=== PATIENT | female | born 1955 | race Hispanic/Latino ===

== ENCOUNTER 2020-11-20 02:26 | Inpatient (IN) | payer OTHER ==
[2020-11-20] MEDS ORDERED: DEXTROSE 50% IN WATER (25GM) 50 ML SYRINGE IV ONE ×2 (02:34→02:52)
--- NOTE | 2020-11-20 02:44 | Emergency Department Report ---
ED CPR HPI - General Stated Complaint: CARDIAC ARREST Time Seen by Provider: 11/20/20 02:35 Source: family, EMS - History of Present Illness Initial Comments: Patient is 65 years old female with history of diabetes, noncompliant according to patient daughter report. Patient brought to the emergency room via EMS from a local hotel for evaluation after a cardiac arrest. EMS stated that patient told her daughter that she is feeling tired and lethargic and patient went into cardiac arrest. Initial rhythm was asystole. Patient intubated by EMS. Patient received 1 mg of epinephrine. Blood glucose was found to be 49 patient given dextrose 50. Upon arrival to the ER patient is intubated with good breath sound on both side with a strong pulse. Repeated blood glucose is 17. Patient given 2 amp of dextrose 50 and started on D10 at 150 mL/h. Complaint: found unresponsive -: minute(s) Place: other ([facility]) Bystander CPR Performed: No Initial Findings in the Field: unresponsive, lethargic, no pulse, systole ROSC in the Field: Yes Associated Injuries: No Treatments Prior to Arrival: intubation, epinephrine mgs # - Related Data Allergies Allergy/AdvReac Type Severity Reaction Status Date / Time sulfamethoxazole AdvReac Unknown Verified 11/20/20 02:41 [From Bactrim] trimethoprim [From Bactrim] AdvReac Unknown Verified 11/20/20 02:41 ED Review of Systems ROS: Stated complaint: CARDIAC ARREST Other details as noted in HPI Comment: Unobtainable due to pts medical conditions ED Physical Exam - General General appearance: other (Intubated) - Head Head exam: Present: atraumatic, normocephalic - Eye Pupils: Present: other (3 mm, nonreactive.) - ENT ENT exam: Present: mucous membranes dry - Neck Neck exam: Present: normal inspection - Respiratory Respiratory exam: Present: normal lung sounds bilaterally, other (No spontaneous breathing.) - Cardiovascular Cardiovascular Exam: Present: tachycardia, irregular rhythm, normal heart sounds - GI/Abdominal GI/Abdominal exam: Present: soft, other (Ecchymosis on the lower abdomen.). Absent: distended - Neurological Exam Neurological exam: Present: other (Intubated) - Skin Skin exam: Present: warm, dry, ecchymosis ED Course Vital Signs 11/20/20 11/20/20 11/20/20 02:36 02:46 03:00 Temperature Pulse Rate 106 H 89 Respiratory 20 19 Rate Blood Pressure 88/41 76/40 Blood Pressure [Left] O2 Sat by Pulse 100 Oximetry 11/20/20 11/20/20 11/20/20 03:16 03:30 03:45 Temperature Pulse Rate 94 H 82 93 H Respiratory 18 24 23 Rate Blood Pressure 67/34 78/39 76/35 Blood Pressure [Left] O2 Sat by Pulse Oximetry 11/20/20 11/20/20 11/20/20 04:01 04:15 04:31 Temperature Pulse Rate 90 87 85 Respiratory 21 21 21 Rate Blood Pressure 71/41 73/42 72/34 Blood Pressure [Left] O2 Sat by Pulse Oximetry 11/20/20 11/20/20 11/20/20 04:45 05:01 05:15 Temperature Pulse Rate 79 76 73 Respiratory 18 23 24 Rate Blood Pressure 62/25 67/23 69/25 Blood Pressure [Left] O2 Sat by Pulse Oximetry 11/20/20 11/20/20 11/20/20 06:01 06:15 06:21 Temperature 90.6 F L Pulse Rate 87 87 Respiratory 16 17 Rate Blood Pressure 71/34 86/41 Blood Pressure [Left] O2 Sat by Pulse Oximetry 11/20/20 11/20/20 11/20/20 06:31 07:00 07:30 Temperature Pulse Rate 98 H 113 H 115 H Respiratory 24 19 17 Rate Blood Pressure 87/32 Blood Pressure 95/44 106/53 [Left] O2 Sat by Pulse Oximetry 11/20/20 11/20/20 11/20/20 08:00 08:01 08:30 Temperature 91.6 F L Pulse Rate 117 H 117 H 103 H Respiratory 18 18 22 Rate Blood Pressure 90/40 87/39 Blood Pressure 90/40 [Left] O2 Sat by Pulse Oximetry 11/20/20 11/20/20 11/20/20 08:35 09:01 09:12 Temperature 93.2 F L Pulse Rate 115 H 127 H 124 H Respiratory 25 H 25 H Rate Blood Pressure 91/52 91/52 86/34 Blood Pressure [Left] O2 Sat by Pulse Oximetry 11/20/20 11/20/20 11/20/20 09:31 10:01 10:15 Temperature 93.6 F L Pulse Rate 120 H 112 H 126 H Respiratory 26 H 24 25 H Rate Blood Pressure 86/52 88/66 Blood Pressure [Left] O2 Sat by Pulse Oximetry 11/20/20 11/20/20 11/20/20 10:26 10:31 10:33 Temperature Pulse Rate 130 H 139 H 124 H Respiratory 19 26 H 20 Rate Blood Pressure 141/33 Blood Pressure 108/54 141/33 [Left] O2 Sat by Pulse 96 96 96 Oximetry 11/20/20 11/20/20 11/20/20 11:00 11:04 11:20 Temperature 93.6 F L Pulse Rate 127 H 82 132 H Respiratory 25 H 25 H Rate Blood Pressure 114/52 106/45 116/93 Blood Pressure [Left] O2 Sat by Pulse Oximetry 11/20/20 11/20/20 11/20/20 11:31 11:34 12:01 Temperature 94.4 F L Pulse Rate 88 87 96 H Respiratory 29 H 30 H 28 H Rate Blood Pressure 91/49 91/49 97/49 Blood Pressure [Left] O2 Sat by Pulse Oximetry 11/20/20 11/20/20 11/20/20 12:31 12:52 13:01 Temperature 96.3 F L Pulse Rate 94 H 94 H 95 H Respiratory 28 H 27 H 29 H Rate Blood Pressure 186/112 153/108 154/114 Blood Pressure [Left] O2 Sat by Pulse 63 L Oximetry 11/20/20 13:31 Temperature Pulse Rate 100 H Respiratory 30 H Rate Blood Pressure 188/101 Blood Pressure [Left] O2 Sat by Pulse Oximetry - Central Line Placement Right Femoral Consent Obtained: emergent situation Time Out Performed: Yes Patient Placed on Monitor/Pulse Ox: Yes Prep: mask, gown, gloves Central Line Prep: Povidone-Iodine 1%, Chlorhexidine scrub, sterile drapes applied Local Anesthesia Used: Lidocaine 1% Ultrasound Used for Placement: Yes Central Line Lumen Inserted: triple Reason for Insertion: Volume Resuscitation Bloods Obtained for Lab: No Central Line Position: good blood return, all ports aspirated, flus, sutured in place with 2-0 Dressing Applied: Tegaderm, sterile gauze/tape Patient Tolerated Procedure: well, no complications Complications: none ED Medical Decision Making - Lab Data Result diagrams: 11/20/20 03:24 11/20/20 03:24 - EKG Data -: EKG Interpreted by Me Rate: tachycardia - Radiology Data Radiology results: report reviewed - Medical Decision Making Patient is 65 years old female with history of diabetes, noncompliant according to patient daughter report. Patient brought to the emergency room via EMS from a local hotel for evaluation after a cardiac arrest. EMS stated that patient told her daughter that she is feeling tired and lethargic and patient went into cardiac arrest. Initial rhythm was asystole. Patient intubated by EMS. Patient received 1 mg of epinephrine. Blood glucose was found to be 49 patient given dextrose 50. Upon arrival to the ER patient is intubated with good breath sound on both side with a strong pulse. Repeated blood glucose is 17. Patient given 2 amp of dextrose 50 and started on D10 at 150 mL/h. Patient found to be hypothermic, bear hugger started. Patient is in septic shock. Patient started on normal saline, Zosyn and vancomycin. Chest x-ray showed bilateral lower lobe infiltrate. Right femoral central line placed for resuscitation and pressor. Patient found to be in acute anemia with a hemoglobin of 5.5. PRBC [address] brain and CT abdomen and pelvis is pending. Results need to be followed by hospitalist. I discussed the patient with Dr. Macdonald, he agreed to admit the patient to medical service for further management. Critical Care Time: Yes Critical care time in (mins) excluding proc time.: 45 Critical care attestation.: If time is entered above; I have spent that time in minutes in the direct care of this critically ill patient, excluding procedure time. ED Disposition Clinical Impression: Cardiopulmonary arrest, Septic shock, Bilateral pneumonia, Acute anemia, Hypothermia, Acute renal failure Disposition: 09 OP ADMIT IP TO THIS HOSP Is pt being admited?: Yes Condition: Stable Instructions: Bacterial Pneumonia (ED) Referrals: PRIMARY CARE, [Primary Care Provider] - 3-5 Days
[2020-11-20] MEDS ORDERED: SODIUM CHLORIDE 0.9% 1000 ML 1,000 ML IV ONE ×3 (02:45→09:50)
--- NOTE | 2020-11-20 02:59 | XRay Report ---
CHEST 1 VIEW 11/20/2020 2:30 AM INDICATION / CLINICAL INFORMATION: Chest Pain. COMPARISON: None available. FINDINGS: SUPPORT DEVICES: An ET tube terminates over the right main bronchus. HEART / MEDIASTINUM: No significant abnormality. LUNGS / PLEURA: There are generalized bilateral airspace opacities. No significant pleural effusion. No pneumothorax. ADDITIONAL FINDINGS: No significant additional findings. IMPRESSION: 1. Malpositioned ET tube as above. 2. Nonspecific bilateral airspace opacities. Considerations include pulmonary edema and pneumonia. Signer Name: Luis Angel Espino MD Signed: 11/20/2020 2:55 AM Workstation Name: [id number]
[2020-11-20] MEDS ORDERED: DEXTROSE 10% IN WATER 1,000 ML IV SCH (03:00)
[2020-11-20] MEDS ORDERED: PIPERACILLIN/TAZOBACTAM 3.375 3.375 GM/50 ML BAG IV ONE (03:27)
[2020-11-20 03:52] LABS: Mean Corpuscular HGB Conc 28 % (30-34); Mean Corpuscular Volume 93 fl (79-97); Platelet Count 136 K/mm3 (140-440); Red Blood Count 2.11 M/mm3 (3.65-5.03)
--- NOTE | 2020-11-20 03:52 | History and Physical Report ---
History of Present Illness Date of examination: 11/20/20 Date of admission: 11/20/2020 Chief complaint: Cardiac Arrest. History of present illness: 65-year-old female with known history of diabetes mellitus but noncompliant with medications according to daughter brought into the emergency room via EMS today for evaluation of cardiac arrest. Most of the history was gotten from the ER staff as patient is already intubated. EMS was said to have been informed by daughter that patient was feeling tired and lethargic and subsequently went into cardiac arrest. Initial rhythm was said to be asystole and patient subsequently intubated by EMS. She received 1 round of epinephrine. Initial blood sugar was about 49 and was given D50. Blood sugar check upon arrival in the emergency room was 17 and patient given 2 AMPS of D50 and then started on D10 IV infusion. Work-up in the emergency room today reveals: Hemoglobin of 5.5 and hematocrit of 19.6. D-dimer was greater than 10,000, LDH and ferritin levels were elevated. Urinalysis reveals a UTI. Chest x-ray reveals nonspecific bilateral airspace opacities considerations include pulmonary edema or pneumonia. BUN and creatinine were [address] head, Abdomen and pelvis still pending during this dictation. Patient is being admitted into the intensive care unit with multiple medical problems including septic shock, UTI, anemia, acute kidney injury, and pneumonia. Past History Past Medical History: diabetes Past Surgical History: Other (Unknown) Social history: other (Unknown) Family history: other (Unknown) Medications and Allergies Allergies Allergy/AdvReac Type Severity Reaction Status Date / Time sulfamethoxazole AdvReac Unknown Verified 11/20/20 02:41 [From Bactrim] trimethoprim [From Bactrim] AdvReac Unknown Verified 11/20/20 02:41 Active Meds: Active Medications Dextrose (D10w) 1,000 mls @ 150 mls/hr IV DIRECT SHAQ Last Admin: 11/20/20 03:15 Dose: 150 mls/hr Documented by: Sodium Chloride (Nacl 0.9% 1000 Ml) 1,000 mls @ 999 mls/hr IV BOLUS ONE Stop: 11/20/20 03:45 Last Admin: 11/20/20 02:50 Dose: 999 mls/hr Documented by: Piperacillin Sod/Tazobactam Sod (Zosyn/Ns 3.375gm/50ml) 3.375 gm in 50 mls @ 100 mls/hr IV ONCE ONE; Protocol Stop: 11/20/20 03:56 Review of Systems ROS unobtainable: due to endotracheal tube Exam - Constitutional General appearance: Present: no acute distress, well-nourished, disheveled - EENT Eyes: Present: PERRL, EOM intact. Absent: scleral icterus ENT: hearing intact, clear oral mucosa, dentition normal - Neck Neck: Present: supple, normal ROM - Respiratory Respiratory effort: normal Respiratory: bilateral: CTA - Cardiovascular Rhythm: regular Heart Sounds: Present: S1 & S2. Absent: gallop, systolic murmur, diastolic murmur, rub, click - Extremities Extremities: no ischemia, pulses intact, pulses symmetrical, No edema, normal temperature, normal color, Full ROM Peripheral Pulses: within normal limits - Abdominal General gastrointestinal: Present: soft, non-tender, non-distended, normal bowel sounds. Absent: mass - Integumentary Integumentary: Present: clear, warm, dry, pale. Absent: rash - Musculoskeletal Musculoskeletal: strength equal bilaterally - Psychiatric Psychiatric: cooperative, other - Neurologic Neurologic: CNII-XII intact, no focal deficits, moves all extremities, other (Intubated.) Results - Labs CBC & Chem 7: 11/20/20 03:24 11/20/20 03:24 Labs: Abnormal lab results 11/20/20 11/20/20 11/20/20 Range/Units 02:34 02:51 03:06 POC Glucose 17 L < 10 L 212 H (70-105) mg/dL Assessment and Plan - Patient Problems (1) Cardiopulmonary arrest Current Visit: Yes Status: Acute Plan to address problem: Possibly multifactorial including sepsis from pneumonia and UTI, hypoglycemia and anemia. Patient admitted into the intensive care unit. We will consult security operations center operator and [place] i inspector for evaluation. (2) Bilateral pneumonia Current Visit: Yes Status: Acute Plan to address problem: Patient placed on empiric IV antibiotics. We will also rule out for COVID-19. Consult placed to infectious disease for evaluation and recommendation. (3) Septic shock Current Visit: Yes Status: Acute Plan to address problem: Possibly secondary to underlying pneumonia and UTI. Patient placed on IV fluid, empiric IV antibiotics and Levophed. Vitals will be closely monitored. (4) Acute anemia Current Visit: Yes Status: Acute Plan to address problem: No obvious blood loss. Baseline hemoglobin unknown Patient is being prepared for packed red blood cell transfusion. We will monitor CBC. (5) Acute renal failure Current Visit: Yes Status: Acute Plan to address problem: Patient commenced on IV fluid. Consult placed to nephrology for evaluation. (6) Hypothermia Current Visit: Yes Status: Acute Plan to address problem: Possibly secondary to the septic shock, severe hypoglycemia. Patient placed on a Shayla hugger. We will monitor vitals closely. (7) DVT prophylaxis Current Visit: Yes Status: Acute Plan to address problem: Patient placed on sequential compression device. (8) Full code status Current Visit: Yes Status: Acute Plan to address problem: Patient is a full code.
[2020-11-20 04:01] LABS: INR 2.71 (0.87-1.13)
[2020-11-20 04:03] LABS: Amorphous Crystals,Urine Few; Bacteria,Urine 4+ /HPF (Negative); Bilirubin,Urine NEG (Negative); Blood,Urine SM (Negative); Color,Urine Yellow (Yellow); Mucus,Urine 3+ /HPF; Urobilinogen,Urine < 2.0 mg/dL (<2.0)
[2020-11-20 04:06] LABS: Protein,Urine >500 mg/dL (Negative); WBC,Urine > 182.0 /HPF (0.0-6.0)
[2020-11-20 04:09] LABS: Hematocrit 19.6 % (30.3-42.9); Hemoglobin 5.5 gm/dl (10.1-14.3); Partial Thromboplastin Time 63.3 Sec. (24.2-36.6); Red Cell Distribution Width 25.4 % (13.2-15.2)
[2020-11-20 04:11] LABS: C-Reactive Protein 20.5 mg/dL (0.00-1.30)
[2020-11-20] MEDS ORDERED: SODIUM CHLORIDE 0.9% 500 ML 500 ML IV ONE ×2 (04:11→08:19)
[2020-11-20 04:12] LABS: Bilirubin,Direct 0.9 mg/dL (0-0.2)
[2020-11-20] MEDS ORDERED: DEXTROSE 50% IN WATER (25GM) 50 ML VIAL IV PRN (04:15)
[2020-11-20] MEDS ORDERED: SODIUM BICARB 8.4% 50 MEQ/50 ML SYRINGE IV ONE ×6 (04:16→22:30)
[2020-11-20 04:30] LABS: Albumin 1.3 g/dL (3.9-5)
[2020-11-20] MEDS ORDERED: VANCOMYCIN/NS 1 GM/250 ML 1 GM/250 ML BAG IV ONE (04:42)
[2020-11-20] MEDS ORDERED: NORepinephrine/NS 4 MG-250 ML 4 MG/250 ML BAG IV ONE (04:53)
[2020-11-20] MEDS ORDERED: NORepinephrine/NS 4 MG-250 ML 4 MG/250 ML BAG IV SCH (05:00)
[2020-11-20] MEDS ORDERED: ONDANSETRON 4 MG/2 ML INJ IV PRN (05:36)
[2020-11-20] MEDS ORDERED: DEXTROSE 50% IN WATER (25GM) 50 ML SYRINGE IV PRN (05:36)
[2020-11-20] MEDS ORDERED: SODIUM CHLORIDE 0.9% 1000 ML 1,000 ML IV SCH (05:45)
[2020-11-20 05:47] LABS: Band Neutrophils # (Manual) 1.3 K/mm3; Total Cells Counted 200
[2020-11-20 05:48] LABS: Anisocytosis 1+; Hypochromasia 1+; Macrocytosis 1+; Platelet Estimate Consistent w Auto
[2020-11-20] MEDS ORDERED: DOPamine/D5W 800 MG/250 ML 800 MG/250 ML BAG IV SCH (06:00)
[2020-11-20] MEDS ORDERED: VANCOMYCIN PHARMACY TO DOSE IV SCH (06:00)
--- NOTE | 2020-11-20 06:09 | Cat Scan Report ---
CT HEAD WITHOUT CONTRAST INDICATION : AMS. TECHNIQUE: Axial, coronal and sagittal CT imaging was performed from the skull apex through the skul l base without contrast. All CT scans at this location are performed using CT dose reduction for ALA RA by means of automated exposure control. COMPARISON: None available. FINDINGS: Motion artifact limits portions of this exam. PARENCHYMA: No mass, midline shift, hemorrhage, extraaxial collection or acute territorial infarctio n. VENTRICLES: Symmetric and normal in size. SOFT TISSUES: No significant abnormality of the included soft tissues/orbits. BONES: No acute osseous abnormality. SINUSES: Mild mucosal thickening is seen throughout the ethmoid air cells. No other significant abnor mality. ADDITIONAL FINDINGS: None. IMPRESSION: 1. No acute intracranial abnormality. 2. Mild ethmoid sinusitis. Signer Name: Luis Angel Espino MD Signed: 11/20/2020 6:05 AM Workstation Name: [id number]
--- NOTE | 2020-11-20 06:15 | Cat Scan Report ---
CT ABDOMEN AND PELVIS WITHOUT CONTRAST INDICATION / CLINICAL INFORMATION: Unspecified abdominal pain. TECHNIQUE: Axial CT images were obtained through the abdomen and pelvis without IV contrast. All CT scans at [facility] location are performed using CT dose reduction for ALARA by means of automated exposure control. COMPARISON: None available. FINDINGS: Motion/beam hardening artifacts limit this exam. LOWER CHEST: Extensive nodular opacities/consolidations are seen throughout the lung bases without ot her acute abnormalities. There is moderate thoracic aortic atherosclerosis and severe calcification o f the mitral valve. LIVER: No significant abnormality. GALLBLADDER: The gallbladder is mildly distended with stones/sludge seen dependently. No wall thicken ing or other evidence of acute cholecystitis. BILE DUCTS: No significant abnormality. PANCREAS: No significant abnormality. SPLEEN: No significant abnormality. ADRENALS: No significant abnormality. RIGHT KIDNEY / URETER: No significant abnormality. LEFT KIDNEY / URETER: No significant abnormality. STOMACH / SMALL BOWEL: No significant abnormality. COLON: Stool is seen throughout the colon without other acute abnormalities. APPENDIX: Not visualized. PERITONEUM: No free fluid. No free air. No fluid collection. LYMPH NODES: No significant adenopathy. AORTA / ARTERIES: There is mild generalized atherosclerosis. The aorta is normal in caliber. IVC / VEINS: No significant abnormality. An infrarenal IVC filter is present. URINARY BLADDER: Drained by a Huerta catheter. REPRODUCTIVE ORGANS: No significant abnormality. ADDITIONAL FINDINGS: Anasarca is noted with a gas containing fluid collection seen along the midline of the lower abdominal wall on image 133 of series 2 measuring 9.7 x 3.5 cm, likely representing an a bscess. Gas extends beyond the confines of this collection along the right lateral aspect of the [place] ection. Additional foci of gas are seen along the right groin. SKELETAL SYSTEM: The bones are demineralized with moderate degenerative changes seen throughout the s pine and pelvis. IMPRESSION: 1. Suspected bibasilar pneumonia. 2. Anasarca with a suspected abdominal wall abscess as above with additional nonspecific gas seen erika ng the right groin. 3. Additional findings as above. Signer Name: Luis Angel Espino MD Signed: 11/20/2020 6:10 AM Workstation Name: [id number]
[2020-11-20 06:44] LABS: Chol/HDL Ratio 7.8 %
[2020-11-20] MEDS ORDERED: VASOPRESSIN 20 UNIT in SODIUM CHLORIDE 0.9% 100 ML IV SCH (09:00)
[2020-11-20] MEDS ORDERED: INSULIN REGULAR, HUMAN 100 UNITS in SODIUM CHLORIDE 0.9% 99 ML IV SCH (09:00)
[2020-11-20] MEDS ORDERED: PANTOPRAZOLE 40 MG INJ IV SCH (10:00)
[2020-11-20] MEDS ORDERED: CEFEPIME/NS 2 GM/100 ML 2 GM/100 ML BAG IV SCH (10:00)
[2020-11-20] MEDS ORDERED: SODIUM BICARBONATE 150 MEQ in WATER, STERILE *NICU ONLY 1,000 SYR IV SCH (11:00)
[2020-11-20] MEDS ORDERED: LIDOCAINE (1%) 10 MG/1 ML VIAL 20 ML MDV INFILTRATI ONE (11:57)
--- NOTE | 2020-11-20 12:47 | Consultation ---
History of Present Illness - Reason for Consult Consult date: 11/20/20 pneumonia, r/o COVID Requesting physician: EMIR GIORDANO - History of Present Illness 65-year-old female with history of diabetes mellitus, noncompliant brought to the emergency room by EMS on 11/20/2020 secondary to cardiac arrest. Per records, patient was feeling tired and lethargic went into cardiac arrest upon EMS evaluation. Initial rhythm was asystole, patient was intubated, received epinephrine. Blood glucose was 49. History is limited. Patient intubated. On arrival, temperature 98.6, HR 106, RR 20, BP 88/41, O2 sat 100%. Initial WBC 20.5. Hemoglobin 5.5. Platelets 136. D-dimer> 10,000. Glucose 677. Urinalysis with 182 WBCs and moderate leukocyte esterase. Chest x-ray showed bilateral airspace disease. CT chest bibasilar pneumonia, sciatica, abdominal wall abscess 9.7 x 3.5 cm with gas, foci of gas in the right groin. Review of Systems: Unable to obtain Past History Past Medical History: diabetes Past Surgical History: Other (Unknown) Social history: other (Unknown) Family history: other (Unknown) Medications and Allergies Allergies Allergy/AdvReac Type Severity Reaction Status Date / Time sulfamethoxazole AdvReac Unknown Verified 11/20/20 02:41 [From Bactrim] trimethoprim [From Bactrim] AdvReac Unknown Verified 11/20/20 02:41 Active Meds: Active Medications Dextrose (Dextrose 50% In Water (25gm) 50 Ml Syringe) 0 ml IV Q30MIN PRN; Prot ocol PRN Reason: Hypoglycemia Norepinephrine (Levophed Drip 4 Mg/Ns 250 Ml) 4 mg in 250 mls @ 7.5 mls/hr IV TITR SHAQ; Protocol Last Titration: 11/20/20 10:17 Dose: 30 mcg/min, 112.5 mls/hr Documented by: Sodium Chloride (Nacl 0.9% 1000 Ml) 1,000 mls @ 125 mls/hr IV DIRECT SHAQ Last Admin: 11/20/20 07:00 Dose: 125 mls/hr Documented by: Cefepime HCl (Cefepime/Ns 2 Gm/100 Ml) 2 gm in 100 mls @ 200 mls/hr IV Q24HR SHAQ; Protocol Insulin Human Regular 100 (units/ Sodium Chloride) 100 mls @ 1 mls/hr IV TITR SHAQ; Protocol Last Titration: 11/20/20 12:10 Dose: 3 units/hr, 3 mls/hr Documented by: Vasopressin 20 unit/ Sodium (Chloride) 101 mls @ 9.09 mls/hr IV TITR SHAQ; Protocol Last Admin: 11/20/20 09:54 Dose: 0.03 units/min, 9.09 mls/hr Documented by: Sodium Bicarbonate 150 meq/ (Sterile Water) 150 mls @ 75 mls/hr IV DIRECT SHAQ Last Admin: 11/20/20 11:01 Dose: 75 mls/hr Documented by: Ondansetron HCl (Ondansetron 4 Mg/2 Ml Inj) 4 mg IV Q8H PRN PRN Reason: Nausea And Vomiting Pantoprazole Sodium (Pantoprazole 40 Mg Inj) 40 mg IV BID SHAQ Sodium Chloride (Sodium Chloride 0.9% 10 Ml Flush Syringe) 10 ml IV BID SHAQ Sodium Chloride (Sodium Chloride 0.9% 10 Ml Flush Syringe) 10 ml IV PRN PRN PRN Reason: LINE FLUSH Physical Examination - Physical Exam Narrative exam: General appearance: Intubated, unresponsive Eyes: anicteric sclerae, moist conjunctivae; no lid-lag; pupils with slow reaction. HENT: Normocephalic, Atraumatic; normal external ears, nares open, oropharynx endotracheal tube in place Neck: supple, tracheal midline, no JVD Lungs: Bilateral crackles CV: Tachycardic Abdomen: Abdomen is soft with anterior wall bluish discoloration, foul-smelling Extremities: no edema, no cyanosis Skin: Anterior abdominal wall with bluish discoloration Psych: Unresponsive Neuro: Unresponsive - Constitutional Vitals: Vital Signs Temp Pulse Resp BP Pulse Ox 94.4 F L 87 30 H 91/49 96 11/20/20 11:34 11/20/20 11:34 11/20/20 11:34 11/20/20 11:34 11/20/20 10:33 Temperature -Last 24 Hours Temperature 94.4 F Temperature 93.6 F Temperature 93.6 F Temperature 93.2 F Temperature 91.6 F Temperature 90.6 F Results - Labs CBC & Chem 7: 11/20/20 03:24 05/16/21 03:24 Labs: Abnormal lab results 05/16/21 05/16/21 05/16/21 Range/Units 02:34 02:51 03:06 WBC (4.5-11.0) K/mm3 RBC (3.65-5.03) M/mm3 Hgb (10.1-14.3) gm/dl Hct (30.3-42.9) % MCH (28-32) pg MCHC (30-34) % RDW (13.2-15.2) % Plt Count (140-440) K/mm3 Seg Neuts % (Manual) (40.0-70.0) % Lymphocytes % (Manual) (13.4-35.0) % Seg Neutrophils # Man (1.8-7.7) K/mm3 Lymphocytes # (Manual) (1.2-5.4) K/mm3 PT (12.2-14.9) Sec. INR (0.87-1.13) APTT (24.2-36.6) Sec. D-Dimer (0-234) ng/mlDDU ABG pH (7.320-7.450) POC ABG pCO2 (32.0-48.0) mmHg POC ABG pO2 (83-108) mmHg ABG Hemoglobin (12.0-17.5) ABG Oxyhemoglobin (94-98) ABG Sodium (136.0-145.0) mmol/L ABG Potassium (3.40-4.50) mmol/L ABG Glucose (65-95) mg/dL Carboxyhemoglobin (0.5-1.5) Sodium (137-145) mmol/L Potassium (3.6-5.0) mmol/L Chloride (98-107) mmol/L Carbon Dioxide (22-30) mmol/L BUN (7-17) mg/dL Creatinine (0.6-1.2) mg/dL Glucose (65-100) mg/dL POC Glucose 17 L < 10 L 212 H (70-105) mg/dL Hemoglobin A1c (4-6) % Lactic Acid (0.7-2.0) mmol/L Calcium (8.4-10.2) mg/dL Ferritin (10.0-200.0) ng/mL Direct Bilirubin (0-0.2) mg/dL AST (5-40) units/L Lactate Dehydrogenase (91-180) units/L Troponin T (0.00-0.029) ng/mL C-Reactive Protein (0.00-1.30) mg/dL Total Protein (6.3-8.2) g/dL Albumin (3.9-5) g/dL Triglycerides (2-149) mg/dL LDL Cholesterol Direct (50-130) mg/dL HDL Cholesterol (40-59) mg/dL Arterial Blood Glucose (65-95) mg/dL Arterial Blood Ionized Calcium (4.6-5.3) mg/dL Urine WBC (Auto) (0.0-6.0) /HPF Crossmatch 11/20/20 11/20/20 11/20/20 Range/Units 03:24 03:24 03:24 WBC 20.5 H (4.5-11.0) K/mm3 RBC 2.11 L (3.65-5.03) M/mm3 Hgb 5.5 L* (10.1-14.3) gm/dl Hct 19.6 L* (30.3-42.9) % MCH 26 L (28-32) pg MCHC 28 L (30-34) % RDW 25.4 H (13.2-15.2) % Plt Count 136 L (140-440) K/mm3 Seg Neuts % (Manual) 87.0 H (40.0-70.0) % Lymphocytes % (Manual) 4.0 L (13.4-35.0) % Seg Neutrophils # Man 17.8 H (1.8-7.7) K/mm3 Lymphocytes # (Manual) 0.8 L (1.2-5.4) K/mm3 PT 29.1 H (12.2-14.9) Sec. INR 2.71 H (0.87-1.13) APTT 63.3 H* (24.2-36.6) Sec. D-Dimer > 58670 H (0-234) ng/mlDDU ABG pH (7.320-7.450) POC ABG pCO2 (32.0-48.0) mmHg POC ABG pO2 (83-108) mmHg ABG Hemoglobin (12.0-17.5) ABG Oxyhemoglobin (94-98) ABG Sodium (136.0-145.0) mmol/L ABG Potassium (3.40-4.50) mmol/L ABG Glucose (65-95) mg/dL Carboxyhemoglobin (0.5-1.5) Sodium 128 L (137-145) mmol/L Potassium 5.1 H (3.6-5.0) mmol/L Chloride 94.8 L (98-107) mmol/L Carbon Dioxide 10 L (22-30) mmol/L BUN 77 H (7-17) mg/dL Creatinine 2.2 H (0.6-1.2) mg/dL Glucose 677 H* (65-100) mg/dL POC Glucose (70-105) mg/dL Hemoglobin A1c (4-6) % Lactic Acid (0.7-2.0) mmol/L Calcium 7.0 L (8.4-10.2) mg/dL Ferritin (10.0-200.0) ng/mL Direct Bilirubin (0-0.2) mg/dL AST (5-40) units/L Lactate Dehydrogenase (91-180) units/L Troponin T (0.00-0.029) ng/mL C-Reactive Protein (0.00-1.30) mg/dL Total Protein (6.3-8.2) g/dL Albumin (3.9-5) g/dL Triglycerides (2-149) mg/dL LDL Cholesterol Direct (50-130) mg/dL HDL Cholesterol (40-59) mg/dL Arterial Blood Glucose (65-95) mg/dL Arterial Blood Ionized Calcium (4.6-5.3) mg/dL Urine WBC (Auto) (0.0-6.0) /HPF Crossmatch 11/20/20 11/20/20 11/20/20 Range/Units 03:24 03:28 03:34 WBC (4.5-11.0) K/mm3 RBC (3.65-5.03) M/mm3 Hgb (10.1-14.3) gm/dl Hct (30.3-42.9) % MCH (28-32) pg MCHC (30-34) % RDW (13.2-15.2) % Plt Count (140-440) K/mm3 Seg Neuts % (Manual) (40.0-70.0) % Lymphocytes % (Manual) (13.4-35.0) % Seg Neutrophils # Man (1.8-7.7) K/mm3 Lymphocytes # (Manual) (1.2-5.4) K/mm3 PT (12.2-14.9) Sec. INR (0.87-1.13) APTT (24.2-36.6) Sec. D-Dimer (0-234) ng/mlDDU ABG pH 6.880 L (7.320-7.450) POC ABG pCO2 (32.0-48.0) mmHg POC ABG pO2 500.8 H (83-108) mmHg ABG Hemoglobin 6.5 L (12.0-17.5) ABG Oxyhemoglobin (94-98) ABG Sodium 125.3 L (136.0-145.0) mmol/L ABG Potassium 4.8 H (3.40-4.50) mmol/L ABG Glucose 688 H (65-95) mg/dL Carboxyhemoglobin 3.6 H (0.5-1.5) Sodium (137-145) mmol/L Potassium (3.6-5.0) mmol/L Chloride (98-107) mmol/L Carbon Dioxide (22-30) mmol/L BUN (7-17) mg/dL Creatinine (0.6-1.2) mg/dL Glucose (65-100) mg/dL POC Glucose (70-105) mg/dL Hemoglobin A1c (4-6) % Lactic Acid 9.00 H* (0.7-2.0) mmol/L Calcium (8.4-10.2) mg/dL Ferritin (10.0-200.0) ng/mL Direct Bilirubin 0.9 H (0-0.2) mg/dL AST 134 H (5-40) units/L Lactate Dehydrogenase (91-180) units/L Troponin T (0.00-0.029) ng/mL C-Reactive Protein (0.00-1.30) mg/dL Total Protein 3.9 L (6.3-8.2) g/dL Albumin 1.3 L (3.9-5) g/dL Triglycerides (2-149) mg/dL LDL Cholesterol Direct (50-130) mg/dL HDL Cholesterol (40-59) mg/dL Arterial Blood Glucose 688 H (65-95) mg/dL Arterial Blood Ionized Calcium 4.3 L (4.6-5.3) mg/dL Urine WBC (Auto) (0.0-6.0) /HPF Crossmatch 11/20/20 11/20/20 11/20/20 Range/Units 03:34 03:34 03:39 WBC (4.5-11.0) K/mm3 RBC (3.65-5.03) M/mm3 Hgb (10.1-14.3) gm/dl Hct (30.3-42.9) % MCH (28-32) pg MCHC (30-34) % RDW (13.2-15.2) % Plt Count (140-440) K/mm3 Seg Neuts % (Manual) (40.0-70.0) % Lymphocytes % (Manual) (13.4-35.0) % Seg Neutrophils # Man (1.8-7.7) K/mm3 Lymphocytes # (Manual) (1.2-5.4) K/mm3 PT (12.2-14.9) Sec. INR (0.87-1.13) APTT (24.2-36.6) Sec. D-Dimer (0-234) ng/mlDDU ABG pH (7.320-7.450) POC ABG pCO2 (32.0-48.0) mmHg POC ABG pO2 (83-108) mmHg ABG Hemoglobin (12.0-17.5) ABG Oxyhemoglobin (94-98) ABG Sodium (136.0-145.0) mmol/L ABG Potassium (3.40-4.50) mmol/L ABG Glucose (65-95) mg/dL Carboxyhemoglobin (0.5-1.5) Sodium (137-145) mmol/L Potassium (3.6-5.0) mmol/L Chloride (98-107) mmol/L Carbon Dioxide (22-30) mmol/L BUN (7-17) mg/dL Creatinine (0.6-1.2) mg/dL Glucose (65-100) mg/dL POC Glucose 448 H (70-105) mg/dL Hemoglobin A1c (4-6) % Lactic Acid (0.7-2.0) mmol/L Calcium (8.4-10.2) mg/dL Ferritin 3869.0 H (10.0-200.0) ng/mL Direct Bilirubin (0-0.2) mg/dL AST (5-40) units/L Lactate Dehydrogenase 501 H (91-180) units/L Troponin T (0.00-0.029) ng/mL C-Reactive Protein 20.50 H (0.00-1.30) mg/dL Total Protein (6.3-8.2) g/dL Albumin (3.9-5) g/dL Triglycerides (2-149) mg/dL LDL Cholesterol Direct (50-130) mg/dL HDL Cholesterol (40-59) mg/dL Arterial Blood Glucose (65-95) mg/dL Arterial Blood Ionized Calcium (4.6-5.3) mg/dL Urine WBC (Auto) (0.0-6.0) /HPF Crossmatch 11/20/20 11/20/20 11/20/20 Range/Units 03:44 05:30 05:50 WBC (4.5-11.0) K/mm3 RBC (3.65-5.03) M/mm3 Hgb (10.1-14.3) gm/dl Hct (30.3-42.9) % MCH (28-32) pg MCHC (30-34) % RDW (13.2-15.2) % Plt Count (140-440) K/mm3 Seg Neuts % (Manual) (40.0-70.0) % Lymphocytes % (Manual) (13.4-35.0) % Seg Neutrophils # Man (1.8-7.7) K/mm3 Lymphocytes # (Manual) (1.2-5.4) K/mm3 PT (12.2-14.9) Sec. INR (0.87-1.13) APTT (24.2-36.6) Sec. D-Dimer (0-234) ng/mlDDU ABG pH (7.320-7.450) POC ABG pCO2 (32.0-48.0) mmHg POC ABG pO2 (83-108) mmHg ABG Hemoglobin (12.0-17.5) ABG Oxyhemoglobin (94-98) ABG Sodium (136.0-145.0) mmol/L ABG Potassium (3.40-4.50) mmol/L ABG Glucose (65-95) mg/dL Carboxyhemoglobin (0.5-1.5) Sodium (137-145) mmol/L Potassium (3.6-5.0) mmol/L Chloride (98-107) mmol/L Carbon Dioxide (22-30) mmol/L BUN (7-17) mg/dL Creatinine (0.6-1.2) mg/dL Glucose (65-100) mg/dL POC Glucose (70-105) mg/dL Hemoglobin A1c (4-6) % Lactic Acid (0.7-2.0) mmol/L Calcium (8.4-10.2) mg/dL Ferritin (10.0-200.0) ng/mL Direct Bilirubin (0-0.2) mg/dL AST (5-40) units/L Lactate Dehydrogenase (91-180) units/L Troponin T 0.037 H D (0.00-0.029) ng/mL C-Reactive Protein (0.00-1.30) mg/dL Total Protein (6.3-8.2) g/dL Albumin (3.9-5) g/dL Triglycerides 152 H (2-149) mg/dL LDL Cholesterol Direct 16 L (50-130) mg/dL HDL Cholesterol 10 L (40-59) mg/dL Arterial Blood Glucose (65-95) mg/dL Arterial Blood Ionized Calcium (4.6-5.3) mg/dL Urine WBC (Auto) > 182.0 H (0.0-6.0) /HPF Crossmatch See Detail 11/20/20 11/20/20 11/20/20 Range/Units 05:50 05:50 06:03 WBC (4.5-11.0) K/mm3 RBC (3.65-5.03) M/mm3 Hgb (10.1-14.3) gm/dl Hct (30.3-42.9) % MCH (28-32) pg MCHC (30-34) % RDW (13.2-15.2) % Plt Count (140-440) K/mm3 Seg Neuts % (Manual) (40.0-70.0) % Lymphocytes % (Manual) (13.4-35.0) % Seg Neutrophils # Man (1.8-7.7) K/mm3 Lymphocytes # (Manual) (1.2-5.4) K/mm3 PT (12.2-14.9) Sec. INR (0.87-1.13) APTT (24.2-36.6) Sec. D-Dimer (0-234) ng/mlDDU ABG pH (7.320-7.450) POC ABG pCO2 (32.0-48.0) mmHg POC ABG pO2 (83-108) mmHg ABG Hemoglobin (12.0-17.5) ABG Oxyhemoglobin (94-98) ABG Sodium (136.0-145.0) mmol/L ABG Potassium (3.40-4.50) mmol/L ABG Glucose (65-95) mg/dL Carboxyhemoglobin (0.5-1.5) Sodium (137-145) mmol/L Potassium (3.6-5.0) mmol/L Chloride (98-107) mmol/L Carbon Dioxide (22-30) mmol/L BUN (7-17) mg/dL Creatinine (0.6-1.2) mg/dL Glucose (65-100) mg/dL POC Glucose 460 H (70-105) mg/dL Hemoglobin A1c < 4.0 L (4-6) % Lactic Acid 10.80 H* (0.7-2.0) mmol/L Calcium (8.4-10.2) mg/dL Ferritin (10.0-200.0) ng/mL Direct Bilirubin (0-0.2) mg/dL AST (5-40) units/L Lactate Dehydrogenase (91-180) units/L Troponin T (0.00-0.029) ng/mL C-Reactive Protein (0.00-1.30) mg/dL Total Protein (6.3-8.2) g/dL Albumin (3.9-5) g/dL Triglycerides (2-149) mg/dL LDL Cholesterol Direct (50-130) mg/dL HDL Cholesterol (40-59) mg/dL Arterial Blood Glucose (65-95) mg/dL Arterial Blood Ionized Calcium (4.6-5.3) mg/dL Urine WBC (Auto) (0.0-6.0) /HPF Crossmatch 11/20/20 11/20/20 Range/Units 07:34 09:49 WBC (4.5-11.0) K/mm3 RBC (3.65-5.03) M/mm3 Hgb (10.1-14.3) gm/dl Hct (30.3-42.9) % MCH (28-32) pg MCHC (30-34) % RDW (13.2-15.2) % Plt Count (140-440) K/mm3 Seg Neuts % (Manual) (40.0-70.0) % Lymphocytes % (Manual) (13.4-35.0) % Seg Neutrophils # Man (1.8-7.7) K/mm3 Lymphocytes # (Manual) (1.2-5.4) K/mm3 PT (12.2-14.9) Sec. INR (0.87-1.13) APTT (24.2-36.6) Sec. D-Dimer (0-234) ng/mlDDU ABG pH 6.893 L (7.320-7.450) POC ABG pCO2 50.0 H (32.0-48.0) mmHg POC ABG pO2 (83-108) mmHg ABG Hemoglobin 8.5 L (12.0-17.5) ABG Oxyhemoglobin 86.2 L (94-98) ABG Sodium (136.0-145.0) mmol/L ABG Potassium (3.40-4.50) mmol/L ABG Glucose 288 H (65-95) mg/dL Carboxyhemoglobin 5.2 H (0.5-1.5) Sodium (137-145) mmol/L Potassium (3.6-5.0) mmol/L Chloride (98-107) mmol/L Carbon Dioxide (22-30) mmol/L BUN (7-17) mg/dL Creatinine (0.6-1.2) mg/dL Glucose (65-100) mg/dL POC Glucose 407 H (70-105) mg/dL Hemoglobin A1c (4-6) % Lactic Acid (0.7-2.0) mmol/L Calcium (8.4-10.2) mg/dL Ferritin (10.0-200.0) ng/mL Direct Bilirubin (0-0.2) mg/dL AST (5-40) units/L Lactate Dehydrogenase (91-180) units/L Troponin T (0.00-0.029) ng/mL C-Reactive Protein (0.00-1.30) mg/dL Total Protein (6.3-8.2) g/dL Albumin (3.9-5) g/dL Triglycerides (2-149) mg/dL LDL Cholesterol Direct (50-130) mg/dL HDL Cholesterol (40-59) mg/dL Arterial Blood Glucose 288 H (65-95) mg/dL Arterial Blood Ionized Calcium 3.9 L (4.6-5.3) mg/dL Urine WBC (Auto) (0.0-6.0) /HPF Crossmatch Assessment and Plan Cultures: Pending Assessment: 65-year-old female with history of diabetes mellitus, noncompliant brought to the emergency room by EMS on 11/20/2020 secondary to cardiac arrest: #Severe sepsis with septic shock/outside hospital cardiac arrest: Patient with severe hypothermia, tachycardia, hypotension currently on 2 pressors, leukocytosis, elevated lactate, elevated creatinine, elevated LFTs; likely secondary to abdominal wall infection, bilateral pneumonia, UTI. #Abdominal wall large abscess/presumed necrotizing fasciitis: CT shows abdominal wall abscess 9.7 x 3.5 cm with gas, foci of gas in the right groin. #Bilateral pneumonia: Aspiration pneumonia. Should rule out COVID-19. #UTI: Urinalysis with 182 WBCs and moderate leukocyte esterase. #JAMES: Likely due to sepsis. #Elevated LFTs: Likely due to sepsis. #Hypoglycemia: Treated now hyperglycemia. #Severe anemia/thrombocytopenia: Initial hemoglobin 5.5. R/o GI bleed. Recommendations: -Urgent surgical consultation vs IR drainage -Follow-up blood cultures -Obtain sputum culture -Obtain urine culture -Start meropenem 1 g IV every 12 hours renally adjusted -Start clindamycin 6 mg IV every 8 hours for 72 hours -Continue vancomycin with PK consult -Wound care consult Grim prognosis Will follow. Leny Arthur MD Infectious Diseases Information Security Specialist [facility] ([facility] M [phone] O [phone]
[2020-11-20] MEDS ORDERED: MEROPENEM 1,000 MG in SODIUM CHLORIDE 0.9% 100 ML IV SCH (13:00)
[2020-11-20] MEDS ORDERED: SIMPLE SYRUP 15 ML FEEDTUBE PRN ×2 (13:02)
[2020-11-20] MEDS ORDERED: LIPASE 10,500/PROTEASE 25,000/AMYLASE 43,750 (UNITS) DR CAP FEEDTUBE PRN (13:02)
[2020-11-20] MEDS ORDERED: SODIUM BICARBONATE 325 MG TAB FEEDTUBE PRN (13:02)
--- NOTE | 2020-11-20 13:07 | Event Note ---
Date: 11/20/20 Patient seen and examined Vitals noted, patient currently on 2 pressor vasopressin and Levophed. Patient appears unresponsive, with a very faint pulse, intubated without any sedation Noted abdominal wall abscess with ecchymosis and induration Received 1 unit of blood transfusion, ordered for second one 65-year-old female with history of diabetes mellitus type 2 noncompliant with medications and outpatient follow-up presented to the hospital following a cardiac arrest at home and severe hypoglycemia. Patient was intubated by the EMS. On arrival, temperature 98.6, HR 106, RR 20, BP 88/41, O2 sat 100%. Initial WBC 20.5. Hemoglobin 5.5. Platelets 136. D-dimer> 10,000. Glucose 677. Urinalysis with 182 WBCs and moderate leukocyte esterase. Chest x-ray showed bilateral airspace disease. CT chest bibasilar pneumonia, sciatica, abdominal wall abscess 9.7 x 3.5 cm with gas, foci of gas in the right groin. Continue empiric antibiotics, consulted ID We will also consult general surgery for possible I&D Follow BMP and H&H Patient CO2 is 10, will start on bicarbonate drip, discussed with critical care attending. Patient was initially hypoglycemic and started on D10W -blood glucose now at 600, continue IV fluid and bicarbonate drip, give another liter of normal saline bolus, started on insulin drip Patient is full code with very poor prognosis Called patient daughter and updated her with all clinical details. --The high probability of a clinically significant, sudden or life threatening deterioration of the system(CNC, CVS, renal, endocrine) required my full and direct attention, intervention and personal management. The aggregate critical care time was [45] minutes. This time is in addition to time spent performing reported procedures but includes the following: [x] Data Review and interpretation [x] Patient assessment and monitoring of vital signs [x] Documentation [x] Medication orders and management
[2020-11-20 13:48] VITALS: BP 188/101
[2020-11-20] MEDS ORDERED: CLINDAMYCIN 600 MG/50 mL 600 MG/50 ML BAG IV SCH (14:00)
--- NOTE | 2020-11-20 14:12 | Event Note ---
Date: 11/20/20 A CODE BIBI was called. I presented to the bedside and the patient was found to be in asystolic arrest. Patient treated in accordance with ACLS protocol without return of perfusing cardiac rhythm. Neurologic exam revealed that the patient pupils are fixed and dilated and absent reflexes. Pulmonary exam reveals lung sounds were absent. Patient was found to have asystole on monitoring engineer. Patient pronounced at 1405 hrs. Patient family notified. 65 minutes critical care time dedicated to bedside patient care as well as advanced care planning.
--- NOTE | 2020-11-20 14:13 | Death Note ---
Note Date of : 11/20/20 Time of : 14:05 Time Pronounced: 14:05 - Preliminary Cause of (problem) (1) Acute respiratory failure Preliminary cause of (2) Cardiopulmonary arrest Preliminary cause of
--- NOTE | 2020-11-20 14:21 | Consultation ---
History of Present Illness Consult date: 11/20/20 - History of present illness History of present illness: 65 year old female admitted to ED after cardiac arrest in the field, found to be septic. She was intubated pre-hospital and started on vasopressors, biarcab drip, and insulin drip in DKA. She had a CT scan that showed a lower abdominal wall abscess with foci of gas. 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 Past History Past Medical History: diabetes Past Surgical History: Other (Unknown) Social history: other (Unknown) Family history: other (Unknown) Medications and Allergies Allergies Allergy/AdvReac Type Severity Reaction Status Date / Time sulfamethoxazole AdvReac Unknown Verified 11/20/20 02:41 [From Bactrim] trimethoprim [From Bactrim] AdvReac Unknown Verified 11/20/20 02:41 Active Meds: Active Medications Lipase/Protease/Amylase (Lipase 10,500/Protease 25,000/Amylase 43,750 (Units) Dr Cap) 1 each FEEDTUBE PRN PRN PRN Reason: For Clogged Feeding Tube Dextrose (Dextrose 50% In Water (25gm) 50 Ml Syringe) 0 ml IV Q30MIN PRN; Protocol PRN Reason: Hypoglycemia Norepinephrine (Levophed Drip 4 Mg/Ns 250 Ml) 4 mg in 250 mls @ 7.5 mls/hr IV TITR SHAQ; Protocol Last Titration: 11/20/20 13:12 Dose: Infused Documented by: Sodium Chloride (Nacl 0.9% 1000 Ml) 1,000 mls @ 125 mls/hr IV DIRECT SHAQ Last Admin: 11/20/20 07:00 Dose: 125 mls/hr Documented by: Insulin Human Regular 100 (units/ Sodium Chloride) 100 mls @ 1 mls/hr IV TITR SHAQ; Protocol Last Titration: 11/20/20 13:11 Dose: 1 units/hr, 1 mls/hr Documented by: Vasopressin 20 unit/ Sodium (Chloride) 101 mls @ 9.09 mls/hr IV TITR SHAQ; Protocol Last Admin: 11/20/20 09:54 Dose: 0.03 units/min, 9.09 mls/hr Documented by: Sodium Bicarbonate 150 meq/ (Sterile Water) 150 mls @ 75 mls/hr IV DIRECT SHAQ Last Admin: 11/20/20 11:01 Dose: 75 mls/hr Documented by: Meropenem 1,000 mg/ Sodium (Chloride) 100 mls @ 100 mls/hr IV Q12HR SHAQ; Protocol Clindamycin HCl (Cleocin 600 Mg/50 Ml) 600 mg in 50 mls @ 100 mls/hr IV Q8HR SHAQ; Protocol Ondansetron HCl (Ondansetron 4 Mg/2 Ml Inj) 4 mg IV Q8H PRN PRN Reason: Nausea And Vomiting Pantoprazole Sodium (Pantoprazole 40 Mg Inj) 40 mg IV BID SHAQ Simple Syrup (Simple Syrup 15 Ml) 15 ml FEEDTUBE PRN PRN PRN Reason: Hypoglycemia Simple Syrup (Simple Syrup 15 Ml) 30 ml FEEDTUBE PRN PRN PRN Reason: Hypoglycemia Sodium Bicarbonate (Sodium Bicarbonate 325 Mg Tab) 325 mg FEEDTUBE PRN PRN PRN Reason: For Clogged Feeding Tube Sodium Chloride (Sodium Chloride 0.9% 10 Ml Flush Syringe) 10 ml IV BID SHAQ Sodium Chloride (Sodium Chloride 0.9% 10 Ml Flush Syringe) 10 ml IV PRN PRN PRN Reason: LINE FLUSH Review of Systems ROS unobtainable: due to endotracheal tube Exam Vital Signs Pulse Ox 100 11/20/20 02:36 - General physical appearance Positive: severe distress, chronically ill - Respiratory Positive: other (agonal breathing on vent, intubated) - Extremities Extremities: abnormal (diminished peripheral pulses, cyanotic hue) Extremity abnormal: cyanosis, pulses diminished - Abdomen Abdomen: Present: other (echymosis on anterior abdominal wall from umbilicus down to pubis and lateralizing to bilateral anterior axillary lines. some blistering of the skin. fluctuant) Results - Labs 11/20/20 03:24 11/20/20 03:24 Abnormal lab results 11/20/20 11/20/20 11/20/20 Range/Units 02:34 02:51 03:06 WBC (4.5-11.0) K/mm3 RBC (3.65-5.03) M/mm3 Hgb (10.1-14.3) gm/dl Hct (30.3-42.9) % MCH (28-32) pg MCHC (30-34) % RDW (13.2-15.2) % Plt Count (140-440) K/mm3 Seg Neuts % (Manual) (40.0-70.0) % Lymphocytes % (Manual) (13.4-35.0) % Seg Neutrophils # Man (1.8-7.7) K/mm3 Lymphocytes # (Manual) (1.2-5.4) K/mm3 PT (12.2-14.9) Sec. INR (0.87-1.13) APTT (24.2-36.6) Sec. D-Dimer (0-234) ng/mlDDU ABG pH (7.320-7.450) POC ABG pCO2 (32.0-48.0) mmHg POC ABG pO2 (83-108) mmHg ABG Hemoglobin (12.0-17.5) ABG Oxyhemoglobin (94-98) ABG Sodium (136.0-145.0) mmol/L ABG Potassium (3.40-4.50) mmol/L ABG Glucose (65-95) mg/dL Carboxyhemoglobin (0.5-1.5) Sodium (137-145) mmol/L Potassium (3.6-5.0) mmol/L Chloride (98-107) mmol/L Carbon Dioxide (22-30) mmol/L BUN (7-17) mg/dL Creatinine (0.6-1.2) mg/dL Glucose (65-100) mg/dL POC Glucose 17 L < 10 L 212 H (70-105) mg/dL Hemoglobin A1c (4-6) % Lactic Acid (0.7-2.0) mmol/L Calcium (8.4-10.2) mg/dL Ferritin (10.0-200.0) ng/mL Direct Bilirubin (0-0.2) mg/dL AST (5-40) units/L Lactate Dehydrogenase (91-180) units/L Troponin T (0.00-0.029) ng/mL C-Reactive Protein (0.00-1.30) mg/dL Total Protein (6.3-8.2) g/dL Albumin (3.9-5) g/dL Triglycerides (2-149) mg/dL LDL Cholesterol Direct (50-130) mg/dL HDL Cholesterol (40-59) mg/dL Arterial Blood Glucose (65-95) mg/dL Arterial Blood Ionized Calcium (4.6-5.3) mg/dL Urine WBC (Auto) (0.0-6.0) /HPF Crossmatch 11/20/20 11/20/20 11/20/20 Range/Units 03:24 03:24 03:24 WBC 20.5 H (4.5-11.0) K/mm3 RBC 2.11 L (3.65-5.03) M/mm3 Hgb 5.5 L* (10.1-14.3) gm/dl Hct 19.6 L* (30.3-42.9) % MCH 26 L (28-32) pg MCHC 28 L (30-34) % RDW 25.4 H (13.2-15.2) % Plt Count 136 L (140-440) K/mm3 Seg Neuts % (Manual) 87.0 H (40.0-70.0) % Lymphocytes % (Manual) 4.0 L (13.4-35.0) % Seg Neutrophils # Man 17.8 H (1.8-7.7) K/mm3 Lymphocytes # (Manual) 0.8 L (1.2-5.4) K/mm3 PT 29.1 H (12.2-14.9) Sec. INR 2.71 H (0.87-1.13) APTT 63.3 H* (24.2-36.6) Sec. D-Dimer > 63556 H (0-234) ng/mlDDU ABG pH (7.320-7.450) POC ABG pCO2 (32.0-48.0) mmHg POC ABG pO2 (83-108) mmHg ABG Hemoglobin (12.0-17.5) ABG Oxyhemoglobin (94-98) ABG Sodium (136.0-145.0) mmol/L ABG Potassium (3.40-4.50) mmol/L ABG Glucose (65-95) mg/dL Carboxyhemoglobin (0.5-1.5) Sodium 128 L (137-145) mmol/L Potassium 5.1 H (3.6-5.0) mmol/L Chloride 94.8 L (98-107) mmol/L Carbon Dioxide 10 L (22-30) mmol/L BUN 77 H (7-17) mg/dL Creatinine 2.2 H (0.6-1.2) mg/dL Glucose 677 H* (65-100) mg/dL POC Glucose (70-105) mg/dL Hemoglobin A1c (4-6) % Lactic Acid (0.7-2.0) mmol/L Calcium 7.0 L (8.4-10.2) mg/dL Ferritin (10.0-200.0) ng/mL Direct Bilirubin (0-0.2) mg/dL AST (5-40) units/L Lactate Dehydrogenase (91-180) units/L Troponin T (0.00-0.029) ng/mL C-Reactive Protein (0.00-1.30) mg/dL Total Protein (6.3-8.2) g/dL Albumin (3.9-5) g/dL Triglycerides (2-149) mg/dL LDL Cholesterol Direct (50-130) mg/dL HDL Cholesterol (40-59) mg/dL Arterial Blood Glucose (65-95) mg/dL Arterial Blood Ionized Calcium (4.6-5.3) mg/dL Urine WBC (Auto) (0.0-6.0) /HPF Crossmatch 11/20/20 11/20/20 11/20/20 Range/Units 03:24 03:28 03:34 WBC (4.5-11.0) K/mm3 RBC (3.65-5.03) M/mm3 Hgb (10.1-14.3) gm/dl Hct (30.3-42.9) % MCH (28-32) pg MCHC (30-34) % RDW (13.2-15.2) % Plt Count (140-440) K/mm3 Seg Neuts % (Manual) (40.0-70.0) % Lymphocytes % (Manual) (13.4-35.0) % Seg Neutrophils # Man (1.8-7.7) K/mm3 Lymphocytes # (Manual) (1.2-5.4) K/mm3 PT (12.2-14.9) Sec. INR (0.87-1.13) APTT (24.2-36.6) Sec. D-Dimer (0-234) ng/mlDDU ABG pH 6.880 L (7.320-7.450) POC ABG pCO2 (32.0-48.0) mmHg POC ABG pO2 500.8 H (83-108) mmHg ABG Hemoglobin 6.5 L (12.0-17.5) ABG Oxyhemoglobin (94-98) ABG Sodium 125.3 L (136.0-145.0) mmol/L ABG Potassium 4.8 H (3.40-4.50) mmol/L ABG Glucose 688 H (65-95) mg/dL Carboxyhemoglobin 3.6 H (0.5-1.5) Sodium (137-145) mmol/L Potassium (3.6-5.0) mmol/L Chloride (98-107) mmol/L Carbon Dioxide (22-30) mmol/L BUN (7-17) mg/dL Creatinine (0.6-1.2) mg/dL Glucose (65-100) mg/dL POC Glucose (70-105) mg/dL Hemoglobin A1c (4-6) % Lactic Acid 9.00 H* (0.7-2.0) mmol/L Calcium (8.4-10.2) mg/dL Ferritin (10.0-200.0) ng/mL Direct Bilirubin 0.9 H (0-0.2) mg/dL AST 134 H (5-40) units/L Lactate Dehydrogenase (91-180) units/L Troponin T (0.00-0.029) ng/mL C-Reactive Protein (0.00-1.30) mg/dL Total Protein 3.9 L (6.3-8.2) g/dL Albumin 1.3 L (3.9-5) g/dL Triglycerides (2-149) mg/dL LDL Cholesterol Direct (50-130) mg/dL HDL Cholesterol (40-59) mg/dL Arterial Blood Glucose 688 H (65-95) mg/dL Arterial Blood Ionized Calcium 4.3 L (4.6-5.3) mg/dL Urine WBC (Auto) (0.0-6.0) /HPF Crossmatch 11/20/20 11/20/20 11/20/20 Range/Units 03:34 03:34 03:39 WBC (4.5-11.0) K/mm3 RBC (3.65-5.03) M/mm3 Hgb (10.1-14.3) gm/dl Hct (30.3-42.9) % MCH (28-32) pg MCHC (30-34) % RDW (13.2-15.2) % Plt Count (140-440) K/mm3 Seg Neuts % (Manual) (40.0-70.0) % Lymphocytes % (Manual) (13.4-35.0) % Seg Neutrophils # Man (1.8-7.7) K/mm3 Lymphocytes # (Manual) (1.2-5.4) K/mm3 PT (12.2-14.9) Sec. INR (0.87-1.13) APTT (24.2-36.6) Sec. D-Dimer (0-234) ng/mlDDU ABG pH (7.320-7.450) POC ABG pCO2 (32.0-48.0) mmHg POC ABG pO2 (83-108) mmHg ABG Hemoglobin (12.0-17.5) ABG Oxyhemoglobin (94-98) ABG Sodium (136.0-145.0) mmol/L ABG Potassium (3.40-4.50) mmol/L ABG Glucose (65-95) mg/dL Carboxyhemoglobin (0.5-1.5) Sodium (137-145) mmol/L Potassium (3.6-5.0) mmol/L Chloride (98-107) mmol/L Carbon Dioxide (22-30) mmol/L BUN (7-17) mg/dL Creatinine (0.6-1.2) mg/dL Glucose (65-100) mg/dL POC Glucose 448 H (70-105) mg/dL Hemoglobin A1c (4-6) % Lactic Acid (0.7-2.0) mmol/L Calcium (8.4-10.2) mg/dL Ferritin 3869.0 H (10.0-200.0) ng/mL Direct Bilirubin (0-0.2) mg/dL AST (5-40) units/L Lactate Dehydrogenase 501 H (91-180) units/L Troponin T (0.00-0.029) ng/mL C-Reactive Protein 20.50 H (0.00-1.30) mg/dL Total Protein (6.3-8.2) g/dL Albumin (3.9-5) g/dL Triglycerides (2-149) mg/dL LDL Cholesterol Direct (50-130) mg/dL HDL Cholesterol (40-59) mg/dL Arterial Blood Glucose (65-95) mg/dL Arterial Blood Ionized Calcium (4.6-5.3) mg/dL Urine WBC (Auto) (0.0-6.0) /HPF Crossmatch 11/20/20 11/20/20 11/20/20 Range/Units 03:44 05:30 05:50 WBC (4.5-11.0) K/mm3 RBC (3.65-5.03) M/mm3 Hgb (10.1-14.3) gm/dl Hct (30.3-42.9) % MCH (28-32) pg MCHC (30-34) % RDW (13.2-15.2) % Plt Count (140-440) K/mm3 Seg Neuts % (Manual) (40.0-70.0) % Lymphocytes % (Manual) (13.4-35.0) % Seg Neutrophils # Man (1.8-7.7) K/mm3 Lymphocytes # (Manual) (1.2-5.4) K/mm3 PT (12.2-14.9) Sec. INR (0.87-1.13) APTT (24.2-36.6) Sec. D-Dimer (0-234) ng/mlDDU ABG pH (7.320-7.450) POC ABG pCO2 (32.0-48.0) mmHg POC ABG pO2 (83-108) mmHg ABG Hemoglobin (12.0-17.5) ABG Oxyhemoglobin (94-98) ABG Sodium (136.0-145.0) mmol/L ABG Potassium (3.40-4.50) mmol/L ABG Glucose (65-95) mg/dL Carboxyhemoglobin (0.5-1.5) Sodium (137-145) mmol/L Potassium (3.6-5.0) mmol/L Chloride (98-107) mmol/L Carbon Dioxide (22-30) mmol/L BUN (7-17) mg/dL Creatinine (0.6-1.2) mg/dL Glucose (65-100) mg/dL POC Glucose (70-105) mg/dL Hemoglobin A1c (4-6) % Lactic Acid (0.7-2.0) mmol/L Calcium (8.4-10.2) mg/dL Ferritin (10.0-200.0) ng/mL Direct Bilirubin (0-0.2) mg/dL AST (5-40) units/L Lactate Dehydrogenase (91-180) units/L Troponin T 0.037 H D (0.00-0.029) ng/mL C-Reactive Protein (0.00-1.30) mg/dL Total Protein (6.3-8.2) g/dL Albumin (3.9-5) g/dL Triglycerides 152 H (2-149) mg/dL LDL Cholesterol Direct 16 L (50-130) mg/dL HDL Cholesterol 10 L (40-59) mg/dL Arterial Blood Glucose (65-95) mg/dL Arterial Blood Ionized Calcium (4.6-5.3) mg/dL Urine WBC (Auto) > 182.0 H (0.0-6.0) /HPF Crossmatch See Detail 11/20/20 11/20/20 11/20/20 Range/Units 05:50 05:50 06:03 WBC (4.5-11.0) K/mm3 RBC (3.65-5.03) M/mm3 Hgb (10.1-14.3) gm/dl Hct (30.3-42.9) % MCH (28-32) pg MCHC (30-34) % RDW (13.2-15.2) % Plt Count (140-440) K/mm3 Seg Neuts % (Manual) (40.0-70.0) % Lymphocytes % (Manual) (13.4-35.0) % Seg Neutrophils # Man (1.8-7.7) K/mm3 Lymphocytes # (Manual) (1.2-5.4) K/mm3 PT (12.2-14.9) Sec. INR (0.87-1.13) APTT (24.2-36.6) Sec. D-Dimer (0-234) ng/mlDDU ABG pH (7.320-7.450) POC ABG pCO2 (32.0-48.0) mmHg POC ABG pO2 (83-108) mmHg ABG Hemoglobin (12.0-17.5) ABG Oxyhemoglobin (94-98) ABG Sodium (136.0-145.0) mmol/L ABG Potassium (3.40-4.50) mmol/L ABG Glucose (65-95) mg/dL Carboxyhemoglobin (0.5-1.5) Sodium (137-145) mmol/L Potassium (3.6-5.0) mmol/L Chloride (98-107) mmol/L Carbon Dioxide (22-30) mmol/L BUN (7-17) mg/dL Creatinine (0.6-1.2) mg/dL Glucose (65-100) mg/dL POC Glucose 460 H (70-105) mg/dL Hemoglobin A1c < 4.0 L (4-6) % Lactic Acid 10.80 H* (0.7-2.0) mmol/L Calcium (8.4-10.2) mg/dL Ferritin (10.0-200.0) ng/mL Direct Bilirubin (0-0.2) mg/dL AST (5-40) units/L Lactate Dehydrogenase (91-180) units/L Troponin T (0.00-0.029) ng/mL C-Reactive Protein (0.00-1.30) mg/dL Total Protein (6.3-8.2) g/dL Albumin (3.9-5) g/dL Triglycerides (2-149) mg/dL LDL Cholesterol Direct (50-130) mg/dL HDL Cholesterol (40-59) mg/dL Arterial Blood Glucose (65-95) mg/dL Arterial Blood Ionized Calcium (4.6-5.3) mg/dL Urine WBC (Auto) (0.0-6.0) /HPF Crossmatch 11/20/20 11/20/20 11/20/20 Range/Units 07:34 09:07 09:49 WBC (4.5-11.0) K/mm3 RBC (3.65-5.03) M/mm3 Hgb (10.1-14.3) gm/dl Hct (30.3-42.9) % MCH (28-32) pg MCHC (30-34) % RDW (13.2-15.2) % Plt Count (140-440) K/mm3 Seg Neuts % (Manual) (40.0-70.0) % Lymphocytes % (Manual) (13.4-35.0) % Seg Neutrophils # Man (1.8-7.7) K/mm3 Lymphocytes # (Manual) (1.2-5.4) K/mm3 PT (12.2-14.9) Sec. INR (0.87-1.13) APTT (24.2-36.6) Sec. D-Dimer (0-234) ng/mlDDU ABG pH 6.893 L (7.320-7.450) POC ABG pCO2 50.0 H (32.0-48.0) mmHg POC ABG pO2 (83-108) mmHg ABG Hemoglobin 8.5 L (12.0-17.5) ABG Oxyhemoglobin 86.2 L (94-98) ABG Sodium (136.0-145.0) mmol/L ABG Potassium (3.40-4.50) mmol/L ABG Glucose 288 H (65-95) mg/dL Carboxyhemoglobin 5.2 H (0.5-1.5) Sodium (137-145) mmol/L Potassium (3.6-5.0) mmol/L Chloride (98-107) mmol/L Carbon Dioxide (22-30) mmol/L BUN (7-17) mg/dL Creatinine (0.6-1.2) mg/dL Glucose (65-100) mg/dL POC Glucose 407 H 354 H (70-105) mg/dL Hemoglobin A1c (4-6) % Lactic Acid (0.7-2.0) mmol/L Calcium (8.4-10.2) mg/dL Ferritin (10.0-200.0) ng/mL Direct Bilirubin (0-0.2) mg/dL AST (5-40) units/L Lactate Dehydrogenase (91-180) units/L Troponin T (0.00-0.029) ng/mL C-Reactive Protein (0.00-1.30) mg/dL Total Protein (6.3-8.2) g/dL Albumin (3.9-5) g/dL Triglycerides (2-149) mg/dL LDL Cholesterol Direct (50-130) mg/dL HDL Cholesterol (40-59) mg/dL Arterial Blood Glucose 288 H (65-95) mg/dL Arterial Blood Ionized Calcium 3.9 L (4.6-5.3) mg/dL Urine WBC (Auto) (0.0-6.0) /HPF Crossmatch 11/20/20 11/20/20 11/20/20 Range/Units 10:06 11:14 12:08 WBC (4.5-11.0) K/mm3 RBC (3.65-5.03) M/mm3 Hgb (10.1-14.3) gm/dl Hct (30.3-42.9) % MCH (28-32) pg MCHC (30-34) % RDW (13.2-15.2) % Plt Count (140-440) K/mm3 Seg Neuts % (Manual) (40.0-70.0) % Lymphocytes % (Manual) (13.4-35.0) % Seg Neutrophils # Man (1.8-7.7) K/mm3 Lymphocytes # (Manual) (1.2-5.4) K/mm3 PT (12.2-14.9) Sec. INR (0.87-1.13) APTT (24.2-36.6) Sec. D-Dimer (0-234) ng/mlDDU ABG pH (7.320-7.450) POC ABG pCO2 (32.0-48.0) mmHg POC ABG pO2 (83-108) mmHg ABG Hemoglobin (12.0-17.5) ABG Oxyhemoglobin (94-98) ABG Sodium (136.0-145.0) mmol/L ABG Potassium (3.40-4.50) mmol/L ABG Glucose (65-95) mg/dL Carboxyhemoglobin (0.5-1.5) Sodium (137-145) mmol/L Potassium (3.6-5.0) mmol/L Chloride (98-107) mmol/L Carbon Dioxide (22-30) mmol/L BUN (7-17) mg/dL Creatinine (0.6-1.2) mg/dL Glucose (65-100) mg/dL POC Glucose 303 H 247 H 195 H (70-105) mg/dL Hemoglobin A1c (4-6) % Lactic Acid (0.7-2.0) mmol/L Calcium (8.4-10.2) mg/dL Ferritin (10.0-200.0) ng/mL Direct Bilirubin (0-0.2) mg/dL AST (5-40) units/L Lactate Dehydrogenase (91-180) units/L Troponin T (0.00-0.029) ng/mL C-Reactive Protein (0.00-1.30) mg/dL Total Protein (6.3-8.2) g/dL Albumin (3.9-5) g/dL Triglycerides (2-149) mg/dL LDL Cholesterol Direct (50-130) mg/dL HDL Cholesterol (40-59) mg/dL Arterial Blood Glucose (65-95) mg/dL Arterial Blood Ionized Calcium (4.6-5.3) mg/dL Urine WBC (Auto) (0.0-6.0) /HPF Crossmatch Diabetes panel 11/20/20 11/20/20 11/20/20 Range/Units 03:24 03:24 05:50 Sodium 128 L (137-145) mmol/L Potassium 5.1 H (3.6-5.0) mmol/L Chloride 94.8 L (98-107) mmol/L Carbon Dioxide 10 L (22-30) mmol/L BUN 77 H (7-17) mg/dL Creatinine 2.2 H (0.6-1.2) mg/dL Glucose 677 H* (65-100) mg/dL Hemoglobin A1c (4-6) % Calcium 7.0 L (8.4-10.2) mg/dL AST 134 H (5-40) units/L ALT 38 (7-56) units/L Alkaline Phosphatase 126 (35-129) units/L Total Protein 3.9 L (6.3-8.2) g/dL Albumin 1.3 L (3.9-5) g/dL Triglycerides 152 H (2-149) mg/dL HDL Cholesterol 10 L (40-59) mg/dL 11/20/20 Range/Units 05:50 Sodium (137-145) mmol/L Potassium (3.6-5.0) mmol/L Chloride (98-107) mmol/L Carbon Dioxide (22-30) mmol/L BUN (7-17) mg/dL Creatinine (0.6-1.2) mg/dL Glucose (65-100) mg/dL Hemoglobin A1c < 4.0 L (4-6) % Calcium (8.4-10.2) mg/dL AST (5-40) units/L ALT (7-56) units/L Alkaline Phosphatase (35-129) units/L Total Protein (6.3-8.2) g/dL Albumin (3.9-5) g/dL Triglycerides (2-149) mg/dL HDL Cholesterol (40-59) mg/dL Calcium panel 11/20/20 11/20/20 Range/Units 03:24 03:24 Calcium 7.0 L (8.4-10.2) mg/dL Albumin 1.3 L (3.9-5) g/dL Pituitary panel 11/20/20 Range/Units 03:24 Sodium 128 L (137-145) mmol/L Potassium 5.1 H (3.6-5.0) mmol/L Chloride 94.8 L (98-107) mmol/L Carbon Dioxide 10 L (22-30) mmol/L BUN 77 H (7-17) mg/dL Creatinine 2.2 H (0.6-1.2) mg/dL Glucose 677 H* (65-100) mg/dL Calcium 7.0 L (8.4-10.2) mg/dL Adrenal panel 11/20/20 11/20/20 Range/Units 03:24 03:24 Sodium 128 L (137-145) mmol/L Potassium 5.1 H (3.6-5.0) mmol/L Chloride 94.8 L (98-107) mmol/L Carbon Dioxide 10 L (22-30) mmol/L BUN 77 H (7-17) mg/dL Creatinine 2.2 H (0.6-1.2) mg/dL Glucose 677 H* (65-100) mg/dL Calcium 7.0 L (8.4-10.2) mg/dL Total Bilirubin 1.00 (0.1-1.2) mg/dL AST 134 H (5-40) units/L ALT 38 (7-56) units/L Alkaline Phosphatase 126 (35-129) units/L Total Protein 3.9 L (6.3-8.2) g/dL Albumin 1.3 L (3.9-5) g/dL - Imaging CT scan - abdomen: report reviewed, image reviewed CT scan - pelvis: report reviewed (CT scan with 9x5cm fluid collection in anterior abdominal with contained air), image reviewed Assessment and Plan 65 year old female in septic shock, DKA, s/p cardiac arrest with 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 Pt is unstable on vasopressor support and ventilator dependent respiratory failure. Ideally she would need wide excisional debridement. However, she is currently not a suitable surgical candidate due to overall grave condition. I spoke with her daughter October about how she would not tolerate a large excisional debridement at this time, and I would incise, drain and pack it to allow it to decompress in the interim. If she can be resuscitated and improves will re-evaluate for formal operative wide debridement. Continue abx, and aggressive resuscitation and support. Prognosis is poor.
--- NOTE | 2020-11-20 14:27 | Procedure Note ---
Date of procedure: 11/20/20 Pre-op diagnosis: abdominal wall abscess Post-op diagnosis: other (necrotizing faciitis of anterior abdominal wall) Procedure: Incision and drainage of abdominal wall Pt's lower abdominal wall was sterilized with betadine and localized with 1% lidocaine. An 11 bladed scalpel was used to make a 3cm incision and the apex of the lower abdominal fluctuance. There was expression of air at incision, and immediate efflux of foul smelling murky fluid. The tissue that was visible was necrotic down to the base and full thickness skin and subcutaneous fluid. The are was then packed with iodoform gauze, followed by dry dressing. Surgeon: ARSH RODRÍGUEZ Estimated blood loss: none Pathology: none Condition: critical Disposition: no change
[2020-11-20] MEDS ORDERED: EPINEPHrine 1 MG/10 ML SYRINGE ONE (22:30)
--- NOTE | 2020-11-21 10:14 | Death Summary ---
Summary - Providers Date of service: 11/20/20 Consults: 11/20/20 05:36 Consult to Dietitian/Nutrition [CONS] Routine Physician Instructions: Reason For Exam: Reason for Consult: Diet education Consult to Physician [CONS] Routine Comment: Consulting Provider: HEIDY HARO Physician Instructions: Reason For Exam: SEPTIC SHOCK, PNEUMONIA,UTI,JAMES,ANEMIA. Consult to Physician [CONS] Routine Comment: Consulting Provider: CHARLEY CABELLO Physician Instructions: Reason For Exam: PNEUMONIA, R/O COVID 19 11/20/20 06:02 Consult to Physician [CONS] Routine Comment: Consulting Provider: PALOMO MENDEZ Physician Instructions: Reason For Exam: JAMES 11/20/20 06:26 Consult to Cardiology [CONS] Routine Consulting Provider: MAGAN ACEVEDO Reason For Exam: CARDIAC ARREST 11/20/20 08:22 Consult to Dietitian/Nutrition [CONS] Routine Physician Instructions: Reason For Exam: DKA Reason for Consult: Nutrition Recommendations Reason for Consult: Write/Manage Tube Feeding 11/20/20 11:00 Consult to Physician [CONS] Routine Comment: Consulting Provider: ARSH RODRÍGUEZ Physician Instructions: Reason For Exam: abdominal wall abscess - summary Date of : 11/20/20 Significant findings: This is 65-year-old female with history of diabetes mellitus type 2 noncompliant with medications and outpatient follow-up presented to the hospital following a cardiac arrest at home and severe hypoglycemia. Patient was intubated by the EMS. Patient appeared unresponsive, with a very faint pulse, intubated without any sedation. Noted abdominal wall abscess with ecchymosis and induration. On arrival in the ER, temperature 98.6, HR 106, RR 20, BP 88/41, O2 sat 100%. Initial WBC 20.5, Hemoglobin 5.5, Platelets 136. D-dimer> 10,000, BG <17. Urinalysis with 182 WBCs and moderate leukocyte esterase. Chest x-ray showed bilateral airspace disease. CT chest bibasilar pneumonia, sciatica, abdominal wall abscess 9.7 x 3.5 cm with gas, foci of gas in the right groin. Received 1 unit of blood transfusion, ordered for second one for severe anemia. Started on D10W for profound hypoglycemia. Ordered for empiric antibiotics for severe sepsis, consulted ID, Consulted general surgery for possible I&D of abdominal abscess which was performed at bedside Patient CO2 was 10, started on bicarbonate drip, discussed with critical care attending. Patient was initially hypoglycemic and started on D10W -blood glucose then increased to 677, started on insulin drip patient required 2 pressors: vasopressin and Levophed. Patient was full code with very poor prognosis. Called patient daughter and updated her with all clinical details following admission. A CODE BLUE was called around 1400, the patient was found to be in asystolic arrest. Patient treated in accordance with ACLS protocol without return of perfusing cardiac rhythm. Neurologic exam revealed that the patient pupils are fixed and dilated and absent reflexes. Patient was found to have asystole on paunch trimmer. Patient pronounced at 1405 hrs. Patient family notified. Cause of : cardiopulmonary arrest, Acute hypoxic Respiratory failure, Severe sepsis with profound shock, Abdominal wall deep tissue abscess, b/l PNA, UTI, severe anemia with Hb 5.5, Acute renal failure with ATN, Severe metabolic acidosis, Uncontrolled DM type 2.
--- NOTE | 2020-11-22 17:48 | Electrocardiograph Report ---
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
== END 2020-11-20 17:59 | DRG 853 ==
LOC: ED 02:26 → CC1 02:27 → UNDOADMIN 05:11 → CC1 05:11
PROVIDERS: ADMIT Emergency Medicine; ATTEND Emergency Medicine
PROC: 02HV33Z Insertion of Infusion Device into Superior Vena Cava, Percutaneous Approach (ICD-10-PCS; principal; 2020-11-20)
PROC: 0J980ZZ Drainage of Abdomen Subcutaneous Tissue and Fascia, Open Approach (ICD-10-PCS; 2020-11-20)
PROC: 30233N1 Transfusion of Nonautologous Red Blood Cells into Peripheral Vein, Percutaneous Approach (ICD-10-PCS; 2020-11-20)
PROC: 4A033R1 Measurement of Arterial Saturation, Peripheral, Percutaneous Approach (ICD-10-PCS; 2020-11-20)
PROC: 5A1935Z Respiratory Ventilation, Less than 24 Consecutive Hours (ICD-10-PCS; 2020-11-20)
PROC: 0BH17EZ Insertion of Endotracheal Airway into Trachea, Via Natural or Artificial Opening (ICD-10-PCS; 2020-11-20)
DX: A41.9 Sepsis, unspecified organism (principal); E11.10 Type 2 diabetes mellitus with ketoacidosis without coma; J18.9 Pneumonia, unspecified organism; R65.21 Severe sepsis with septic shock; J96.01 Acute respiratory failure with hypoxia; N17.0 Acute kidney failure with tubular necrosis; L02.211 Cutaneous abscess of abdominal wall; Z99.11 Dependence on respirator [ventilator] status; N39.0 Urinary tract infection, site not specified; E87.2 Acidosis; D64.9 Anemia, unspecified; Z20.822 Contact with and (suspected) exposure to COVID-19; I46.9 Cardiac arrest, cause unspecified; E11.9 Type 2 diabetes mellitus without complications; T68.XXXA Hypothermia, initial encounter; R79.89 Other specified abnormal findings of blood chemistry; D69.6 Thrombocytopenia, unspecified; Z91.19 Patient's noncompliance with other medical treatment and regimen; Z88.2 Allergy status to sulfonamides; Z88.8 Allergy status to other drugs, medicaments and biological substances
CPT/HCPCS: 36415; 36600; 70450; 71045; 74176; 80048; 80061; 80076; 81001; 82140; 82728; 82805; 82962; 83036; 83615; 84145; 84484; 85007; 85025; 85379; 85610; 85730; 86140; 86850; 86900; 86901; 86920; 87040; 87070; 87205; 93005; 94002; 94003; G0378; J0171; J1265; J1815; J2185; J2543; J3370; J7030; J7040; P9016; U0003